=== PATIENT | female | born 1995 | race Caucasian/White ===

== ENCOUNTER 2017-09-02 13:20 | Inpatient (IN) | payer MEDICAID ==
[~2017-09-02] VITALS: Ht 160 cm; Wt 68.0 kg
[2017-09-02 13:23] VITALS: BP 139/102
--- NOTE | 2017-09-02 13:34 | NUR ---
Pt c/o left side numbness that started from mouth down to left knee since 1300 today. Pt has 5/10 left frontal numbing headache that does not radiate. AOx4. She has unequal framing manager strength and limited sensation on left side of body. Breathing is normal with equal chest rise and fall, no SOB. VSS, with mild fever.
--- NOTE | 2017-09-02 13:50 | NUR ---
Pt was taken to head CT
--- NOTE | 2017-09-02 14:19 | NUR ---
Pt's O2 100% on room air. No O2 needed
[2017-09-02 14:24] LABS: BASOPHILS # (AUTO) 0.5 K/uL (0.00-0.22); BASOPHILS % (AUTO) 4.1 % (0.0-2.0); EOSINOPHILS # (AUTO) 0.1 K/uL (0-0.4); HEMATOCRIT 39.9 % (36-48); HEMOGLOBIN 12.9 g/dL (12.0-16.0); LYMPHOCYTES # (AUTO) 2.5 K/uL (2.5-16.5); MEAN CORPUSCULAR HEMOGLOBIN 27 pg (27-31); MEAN CORPUSCULAR HGB CONC 32 g/dL (33-37); MEAN CORPUSCULAR VOLUME 85 fL (80-94); MONOCYTES # (AUTO) 0.7 K/uL (0.8-1.0); MONOCYTES % (AUTO) 5.8 % (1.7-9.3); NEUTROPHILS # (AUTO) 8.1 K/uL (1.8-7.7); NEUTROPHILS % (AUTO) 68.1 % (42.2-75.2); PLATELET COUNT (AUTO) 280 K/uL (140-450); RED BLOOD CELL COUNT(AUTO) 4.69 MIL/uL (4.20-5.40); RED CELL DISTRIBUTION WIDTH 11.7 % (11.6-13.7); WHITE BLOOD COUNT (AUTO) 11.9 K/uL (4.5-11.0)
[2017-09-02 14:46] LABS: ANION GAP 12.2 (8-16); APPEARANCE,URINE SL CLOUDY (CLEAR); BILIRUBIN,URINE NEGATIVE (NEGATIVE); BLOOD, URINE NEGATIVE (NEGATIVE); CARBON DIOXIDE 26.7 mmol/L (21-32); COLOR,URINE YELLOW (YELLOW); CREATININE 0.7 mg/dL (0.6-1.3); LEUKOCYTE ESTERASE ,URINE NEGATIVE (NEGATIVE); NITRITE, URINE NEGATIVE (NEGATIVE); PH,URINE 7.5 (5.0-9.0); POTASSIUM 3.9 mmol/L (3.5-5.1); TOTAL BILIRUBIN 0.6 mg/dL (0.0-1.0); UGLUCOSE NEGATIVE (NEGATIVE)
[2017-09-02 14:52] LABS: SALICYLATE < 2.8 mg/dL (2.8-20.0)
[2017-09-02 15:15] LABS: ACETAMINOPHEN < 0.5 ug/ml (10-30)
[2017-09-02 15:21] LABS: BARBITURATE, URINE NEG. ng/ml (NEG <=200); BENZODIAZEPINE, URINE NEG. ng/mL (NEG <=200); CANNABINOID, URINE NEG. ng/mL (NEG <=50); COCAINE, URINE NEG. ng/mL (NEG <=300); OPIATE, URINE NEG. ng/mL (NEG <=2000); PHENCYCLIDINE SCREEN,URINE NEG. ng/mL (NEG <=25)
[2017-09-02] MEDS ORDERED: MORPHINE SULFATE 2 MG/ML SYR IVP PRN (16:25)
[2017-09-02] MEDS ORDERED: HYDROcodone/APAP 7.5/325 MG 1 TAB PO PRN (16:25)
[2017-09-02] MEDS ORDERED: DOCUSATE SODIUM 100 MG GELCAP PO PRN (16:25)
[2017-09-02] MEDS ORDERED: ONDANSETRON 4 MG/2 ML VIAL IM/IVP PRN (16:25)
--- NOTE | 2017-09-02 17:29 | NUR ---
Patient will be admitted to care of Dr Damian. Admited to TELE. Will go to room 110B. Belongings list completed. Report to CHAD Smith.
[2017-09-02 17:30] VITALS: BP 116/63
--- NOTE | 2017-09-02 18:00 | NUR ---
Admitted from , with chief complaint of LT SIDED NUMBNESS (UPPER AND LOWER EXT), DX: NEW ONSET OF SEIZURE. NO SOB NOTED. NO C/O PAIN AT THIS TIME. IV TO LT AC PATENT AND INTACT. CHEST CLEAR. ABDOMEN SOFT, BOWEL SOUNDS PRESENT. NO EDEMA NOTED. PT IS A 21 y/o ,Female, Cooperative,oriented to call light, bed, phone,television, bathroom, smoking policy,visiting hours, procedures, ID bracelet on. Belongings list checked. INSTRUCTED PT TO CALL FOR ASSISTANCE, CALL LIGHT WITHIN REACH, PT VERBALIZED UNDERSTANDING.
[2017-09-02] MEDS: NACL 0.9% 1,000 ML IV SCH (18:07)
--- NOTE | 2017-09-02 19:04 | NUR ---
Admitted from , with chief complaint of LT SIDED NUMBNESS (UPPER AND LOWER EXT), DX: NEW ONSET OF SEIZURE. NO SOB NOTED. NO C/O PAIN AT THIS TIME. IV TO LT AC PATENT AND INTACT. CHEST CLEAR. ABDOMEN SOFT, BOWEL SOUNDS PRESENT. NO EDEMA NOTED. PT IS A 21 y/o ,Female, Cooperative,oriented to call light, bed, phone,television, bathroom, smoking policy,visiting hours, procedures, ID bracelet on. Belongings list checked. INSTRUCTED PT TO CALL FOR ASSISTANCE, CALL LIGHT WITHIN REACH, PT VERBALIZED UNDERSTANDING. Addendum: 09/02/17 at 1910 by Sarah Barrera RN DISREGARD ABOVE NOTES, DUPLICATE.
--- NOTE | 2017-09-02 19:15 | NUR ---
PT AWAKE. NO SOB NOTED, NO COMPLAINTS MADE AT THIS TIME. ENDORSED TO NEXT SHIFT NURSE FOR CONTINUITY OF CARE.
--- NOTE | 2017-09-02 19:17 | NUR ---
RECEIVED REPORT FROM DAY SHIFT NURSE. PT SITTING IN BED, EATING. FAMILY AT BEDSIDE. PT DENIES NUMBNESS TO LEFT SIDE OF HER BODY. NO DISTRESS NOTED. DISCUSSED PLAN OF CARE, PT VERBALIZED UNDERSTANDING. FALL AND SEIZURE PRECAUTION IN PLACE. CALL LIGHT WITHIN REACH. WILL CONTINUE TO MONITOR.
--- NOTE | 2017-09-02 19:18 | NUR ---
IV TO RIGHT AC#20G, NS AT 60 ML/HR INFUSING WELL.
[2017-09-02 19:53] VITALS: BP 130/83
--- NOTE | 2017-09-02 21:00 | NUR ---
PT IN BED WATCHING TV. NO C/O PAIN OR DISCOMFORT. NO SEIZURES NOTED. CALL LIGHT WITHIN REACH. WILL CONTINUE TO MONITOR.
[2017-09-02 22:12] LABS: CHOL/HDL RATIO 2.7 (1-4.5); FREE T4 (FREE THYROXINE) 1.01 ng/dL (0.76-1.46); MAGNESIUM 1.8 mg/dL (1.8-2.4); PHOSPHORUS 2.5 mg/dL (2.5-4.9); THYROID STIMULATING HORMONE 1.75 uIU/mL (0.34-3.74)
[2017-09-02] MEDS: ACETAMINOPHEN 325 MG TAB PO PRN (22:22)
--- NOTE | 2017-09-02 23:05 | NUR ---
PT WATCHING TV. NO DISTRESS NOTED. SAFETY AND SEIZURE PRECAUTION IN PLACE. CALL LIGHT WITHIN REACH.
[2017-09-03] VITALS: BP 114/61
--- NOTE | 2017-09-03 01:15 | NUR ---
PT SLEEPING BUT WAKES EASILY. NO S/S OF PAIN OR DISCOMFORT. NO SEIZURES NOTED. SAFETY AND SEIZURES PRECAUTION IN PLACE. CALL LIGHT WITHIN REACH.
--- NOTE | 2017-09-03 03:30 | NUR ---
PT SLEEPING, EASILY AROUSABLE. NO SEIZURES NOTED. SAFETY/SEIZURE PRECAUTION IN PLACE. CALL LIGHT WITHIN REACH.
[2017-09-03 04:00] VITALS: BP 105/66
--- NOTE | 2017-09-03 05:45 | NUR ---
PT IN BED, AWAKE. NO C/O PAIN OR DISCOMFORT. CALL LIGHT WITHIN REACH.
--- NOTE | 2017-09-03 07:02 | NUR ---
RECEIVED REPORT FROM DAY SHIFT NURSE. PT SITTING IN BED, FRIENDS AT BEDSIDE. NO C/O PAIN OR DISCOMFORT. NO SEIZURES NOTED. NO C/O NUMBNESS. IV TO RIGHT AC #20G, NS AT 20 ML/HR. DISCUSSED PLAN OF CARE, PT VERBALIZED UNDERSTANDING. SAFETY/SEIZURE PRECAUTION IN PLACE. CALL LIGHT WITHIN REACH. WILL CONTINUE TO MONITOR. Addendum: 09/03/17 at 1951 by Masha Escalera RN ERROR
--- NOTE | 2017-09-03 07:15 | NUR ---
ENDORSED PT TO DAY SHIFT NURSE. PT IN STABLE CONDITION.
[2017-09-03 07:19] LABS: BASOPHILS # (AUTO) 0.4 K/uL (0.00-0.22); EOSINOPHILS # (AUTO) 0.2 K/uL (0-0.4); EOSINOPHILS % (AUTO) 1.5 % (0.0-4.0); HEMATOCRIT 35.5 % (36-48); HEMOGLOBIN 12.1 g/dL (12.0-16.0); LYMPHOCYTES # (AUTO) 3.1 K/uL (2.5-16.5); LYMPHOCYTES % (AUTO) 29.7 % (20.5-51.1); MEAN CORPUSCULAR HEMOGLOBIN 29 pg (27-31); MEAN CORPUSCULAR HGB CONC 34 g/dL (33-37); MEAN CORPUSCULAR VOLUME 85 fL (80-94); MONOCYTES # (AUTO) 0.7 K/uL (0.8-1.0); MONOCYTES % (AUTO) 6.7 % (1.7-9.3); NEUTROPHILS # (AUTO) 5.9 K/uL (1.8-7.7); NEUTROPHILS % (AUTO) 58.1 % (42.2-75.2); PLATELET COUNT (AUTO) 235 K/uL (140-450); RED BLOOD CELL COUNT(AUTO) 4.18 MIL/uL (4.20-5.40); RED CELL DISTRIBUTION WIDTH 11.9 % (11.6-13.7); WHITE BLOOD COUNT (AUTO) 10.3 K/uL (4.5-11.0)
--- NOTE | 2017-09-03 07:20 | NUR ---
RECEIVED PT IN BED. AWAKE. ALERT ORIENTEDX4. NO SOB NOTED. DENIES ANY PAIN OR DISCOMFORT AT THIS TIME. PT AMBULATORY. SAFETY PRECAUTION IN PLACE. CALL LIGHT WITHIN REACH.
[2017-09-03 07:51] VITALS: BP 124/78
[2017-09-03 09:16] LABS: ANION GAP 11.5 (8-16); CARBON DIOXIDE 27.4 mmol/L (21-32); CREATININE 0.6 mg/dL (0.6-1.3); POTASSIUM 3.9 mmol/L (3.5-5.1)
[2017-09-03 09:22] LABS: MAGNESIUM 1.8 mg/dL (1.8-2.4); PHOSPHORUS 4.1 mg/dL (2.5-4.9)
[2017-09-03 09:31] LABS: PROTHROMBIN TIME 10.4 secs (10.8-13.4)
--- NOTE | 2017-09-03 10:02 | NUR ---
PATIENT HAS BEEN SCREENED AND CATEGORIZED LOW NUTRITION RISK. PATIENT WILL BE SEEN WITHIN 7 DAYS OF ADMISSION. 09/09/17 FINN GOMES MBA, RD
[2017-09-03] MEDS: NACL 0.9% 1,000 ML IV SCH (10:15)
--- NOTE | 2017-09-03 10:41 | NUR ---
PT AWAKE. DR. NEWMAN AND THE RESIDENTS CAME TO SEE PT. AWAITING FOR NEURO CONSULT.
[2017-09-03 11:49] VITALS: BP 114/68
[2017-09-03] MEDS: LORazepam 2 MG/ML VIAL IM/IVP PRN (12:10)
--- NOTE | 2017-09-03 12:16 | NUR ---
PT VERBALIZED THAT WHEN SHE WAS TRYING TO EAT HER JAW STARTED TO SHAKE A LITTLE BIT, AND SHE IS SCARED THAT IT MIGHT LEAD TO A SEIZURE ACTIVITY SINCE THIS HAPPENED TO HER YESTERDAY RIGHT BEFORE THE SEIZURE. ASSESSED PT. PT ABLE TO MAKE HER NEEDS KNOWN. OBEYS COMMANDS, FAMILY AT BEDSIDE. MEDICATED PRN ATIVAN FOR AGITATION/SEIZURE. WILL CLOSELY MONITOR PT. SAFETY PRECAUTION IN PLACE.
--- NOTE | 2017-09-03 12:34 | NUR ---
CHECKED ON PT. PT DENIES ANY PAIN OR DISCOMFORT AT THIS TIME. DENIES FEELING NUMBNESS ON EITHER SIDE OF HER BODY. DENIES ANY SHAKING OR NUMBNESS ON HER JAW OR MOUTH AT THIS TIME.
[2017-09-03 15:43] VITALS: BP 114/70
--- NOTE | 2017-09-03 18:34 | NUR ---
PT KEPT CLEAN, DRY AND COMFORTABLE, NEEDS ATTENDED. NO SEIZURE ACTIVITY NOTED. NO SOB NOTED, DENIES ANY PAIN OR DISCOMFORT AT THIS TIME. WILL ENDORSE TO NEXT SHIFT. PT ON STABLE CONDITION. FOR CONTINUITY OF CARE.
--- NOTE | 2017-09-03 19:02 | NUR ---
RECEIVED REPORT FROM DAY SHIFT NURSE. PT SITTING IN BED, FRIENDS AT BEDSIDE. NO C/O PAIN OR DISCOMFORT. NO SEIZURES NOTED. NO C/O NUMBNESS. IV TO RIGHT AC #20G, NS AT 20 ML/HR. DISCUSSED PLAN OF CARE, PT VERBALIZED UNDERSTANDING. SAFETY/SEIZURE PRECAUTION IN PLACE. CALL LIGHT WITHIN REACH. WILL CONTINUE TO MONITOR.
[2017-09-03 20:00] VITALS: BP 118/67
--- NOTE | 2017-09-03 20:15 | NUR ---
EEG ONGOING. PT TOLERATING PROCEDURE WELL. NO DISTRESS NOTED.
[2017-09-03] MEDS: ACETAMINOPHEN 325 MG TAB PO PRN (22:16)
--- NOTE | 2017-09-03 22:17 | NUR ---
PT C/O HEADACHE 3/10 ON PAIN SCALE. TYLENOL 650 MG GIVEN. WILL CONTINUE TO MONITOR.
[2017-09-04] VITALS: BP 101/68
--- NOTE | 2017-09-04 00:21 | NUR ---
PT SLEEPING, EASILY AROUSABLE. NO S/S OF PAIN OR DISCOMFORT. NO S/S OF SEIZURE NOTED. CALL LIGHT WITHIN REACH.
--- NOTE | 2017-09-04 03:00 | NUR ---
PT SLEEPING BUT WAKES EASILY. NO S/S OF SEIZURES. NO S/S OF PAIN OR DISCOMFORT. SAFETY PRECAUTION IN PLACE. CALL LIGHT WITHIN REACH.
[2017-09-04 04:00] VITALS: BP 118/67
--- NOTE | 2017-09-04 07:00 | NUR ---
ENDORSED PT TO DAY SHIFT NURSE. PT IN STABLE CONDITION.
--- NOTE | 2017-09-04 07:01 | NUR ---
RECEIVED PATIENT REPORT AT BEDSIDE FROM NIGHTSHIFT NURSE. PATIENT IS ASLEEP BUT AROUSABLE. PATIENT IS A&OX4. PATIENT DOES NOT COMPLAIN OF ANY NUMBNESS AT THIS TIME. PATIENT'S BED HAS SEIZURE PADS IN PLACE. NO NOTED SEIZURES DURING THIS TIME. PATIENT IS IN STABLE CONDITION. WILL CONTINUE TO MONITOR PATIENT.
[2017-09-04 07:14] LABS: ANION GAP 13.7 (8-16); CREATININE 0.6 mg/dL (0.6-1.3); POTASSIUM 3.7 mmol/L (3.5-5.1)
[2017-09-04 07:16] LABS: MAGNESIUM 1.9 mg/dL (1.8-2.4); PHOSPHORUS 3.6 mg/dL (2.5-4.9)
[2017-09-04 07:23] LABS: BASOPHILS # (AUTO) 0.3 K/uL (0.00-0.22); BASOPHILS % (AUTO) 3.3 % (0.0-2.0); EOSINOPHILS # (AUTO) 0.2 K/uL (0-0.4); EOSINOPHILS % (AUTO) 1.9 % (0.0-4.0); HEMATOCRIT 37.9 % (36-48); HEMOGLOBIN 12.7 g/dL (12.0-16.0); LYMPHOCYTES # (AUTO) 2.6 K/uL (2.5-16.5); LYMPHOCYTES % (AUTO) 29.6 % (20.5-51.1); MEAN CORPUSCULAR HEMOGLOBIN 28 pg (27-31); MEAN CORPUSCULAR HGB CONC 33 g/dL (33-37); MEAN CORPUSCULAR VOLUME 85 fL (80-94); MONOCYTES # (AUTO) 0.5 K/uL (0.8-1.0); MONOCYTES % (AUTO) 5.5 % (1.7-9.3); NEUTROPHILS # (AUTO) 5.1 K/uL (1.8-7.7); NEUTROPHILS % (AUTO) 59.7 % (42.2-75.2); PLATELET COUNT (AUTO) 242 K/uL (140-450); RED BLOOD CELL COUNT(AUTO) 4.48 MIL/uL (4.20-5.40); RED CELL DISTRIBUTION WIDTH 12.3 % (11.6-13.7); WHITE BLOOD COUNT (AUTO) 8.7 K/uL (4.5-11.0)
[2017-09-04 08:00] VITALS: BP 117/61
[2017-09-04] MEDS: NACL 0.9% 1,000 ML IV SCH (09:05)
[2017-09-04] MEDS: LORazepam 2 MG/ML VIAL IM/IVP PRN (09:11)
--- NOTE | 2017-09-04 09:11 | NUR ---
PATIENT COMPLAINS OF MOUTH NUMBNESS AND SAID HER ARMS WERE SHAKING. SHE SAID THAT THIS HAPPENED RIGHT BEFORE SHE HAS A SEIZURE LAST TIME. ADMINISTERED 0.5 ML OF ATIVAN IV TO PATIENT. WILL CONTINUE TO MONITOR PATIENT.
[2017-09-04] MEDS ORDERED: MORPHINE SULFATE 2 MG/ML SYR IVP PRN (11:50)
[2017-09-04 12:00] VITALS: BP 122/69
[2017-09-04] MEDS: levETIRAcetam 1,000 MG in NACL 0.9% 100 ML IV SCH ×2 (12:29→21:11)
--- NOTE | 2017-09-04 14:00 | NUR ---
PATIENT ABLE TO AMBULATE TO THE SHOWER AND BATHE HERSELF. MOTHER AT PATIENT'S SIDE TO MAKE SURE SHE IS SAFE. PATIENT ABLE TO AMBULATE SAFELY BACK TO HER ROOM. IV STILL INTACT. PATIENT TOLERATED WELL.
[2017-09-04 16:00] VITALS: BP 126/72
--- NOTE | 2017-09-04 19:12 | NUR ---
GAVE REPORT TO NIGHTSHIFT NURSE AT BEDSIDE. PATIENT IS IN STABLE CONDITION.
--- NOTE | 2017-09-04 19:13 | NUR ---
RECEIVED REPORT FROM DAY NURSE. PT IN STABLE CONDITION. NO S/S OF DISTRESS NOTED. PT SEEN AMBULATING AROUND THE HALLWAY WITH FAMILY AT HER SIDE, PT TOLERATED WELL. PT IS AAOX4, ON ROOM AIR. IV TO R AC 20G, PATENT AND INTACT, INFUSING WELL. SKIN IS INTACT. INITIAL ASSESSMENT COMPLETED. PLAN OF CARE DISCUSSED WITH PT AT THE BEDSIDE, FAMILY PRESENT, VERBALIZED UNDERSTANDING. ALL SAFETY PRECAUTIONS MET, CALL LIGHT WITHIN REACH, BOARD UPDATED, WILL CONTINUE TO MONITOR
[2017-09-04 20:00] VITALS: BP 113/66
[2017-09-05] VITALS: BP_SYST 101; BP_SYST 140; BP_DIAS 49; BP_DIAS 78
--- NOTE | 2017-09-05 05:00 | NUR ---
CALLED CARDIO TO ASK WHAT HAPPENED WITH EEG THAT WAS ORDERED ON THE 09/04/17 AT 0800 BECAUSE NO RESULTS ARE SHOWING AND ORDER SAYS IT IS STILL ACTIVE. THEY STATED THAT IT HAS BEEN DONE BUT IT HAS NOT BEEN READ YET AND THEY WILL, "LEAVE A NOTE FOR THE BOSS WHEN THEY COME IN." "NO ONE IS HERE NOW."
[2017-09-05 06:16] LABS: T4 (THYROXINE) 8.1 ug/dL (4.5-12.0)
[2017-09-05 07:03] LABS: BASOPHILS # (AUTO) 0.3 K/uL (0.00-0.22); BASOPHILS % (AUTO) 2.6 % (0.0-2.0); EOSINOPHILS # (AUTO) 0.1 K/uL (0-0.4); EOSINOPHILS % (AUTO) 1.1 % (0.0-4.0); HEMATOCRIT 36.2 % (36-48); HEMOGLOBIN 12.1 g/dL (12.0-16.0); LYMPHOCYTES # (AUTO) 2.6 K/uL (2.5-16.5); LYMPHOCYTES % (AUTO) 24.5 % (20.5-51.1); MEAN CORPUSCULAR HEMOGLOBIN 28 pg (27-31); MEAN CORPUSCULAR HGB CONC 33 g/dL (33-37); MEAN CORPUSCULAR VOLUME 84 fL (80-94); MONOCYTES # (AUTO) 0.8 K/uL (0.8-1.0); MONOCYTES % (AUTO) 7.2 % (1.7-9.3); NEUTROPHILS # (AUTO) 6.7 K/uL (1.8-7.7); NEUTROPHILS % (AUTO) 64.6 % (42.2-75.2); PLATELET COUNT (AUTO) 247 K/uL (140-450); RED CELL DISTRIBUTION WIDTH 11.9 % (11.6-13.7); WHITE BLOOD COUNT (AUTO) 10.5 K/uL (4.5-11.0)
--- NOTE | 2017-09-05 07:20 | NUR ---
GAVE REPORT TO DAY NURSE WENDY RN FOR CONTINUITY OF CARE, PT IN STABLE CONDITION. NO S/S OF DISTRESS NOTED. IV PATENT AND INTACT
--- NOTE | 2017-09-05 07:25 | NUR ---
RECEIVED REPORT FROM SHOT CORE DRILL OPERATOR NURSE. PT WAS ASLEEP EASILY AWAKEN. AOX4. AMBULATORY. NO SIGNS OF RESPIRATORY DISTRESS. IV ON THE RIGHT AC, PATENT, INTACT, FLUSHING WELL. SKIN IS INTACT. DISCUSSED PLAN OF CARE WITH PT. PT VERBALIZED UNDERSTANDING. SAFETY/FALL/SEIZURE PRECAUTIONS IN PLACE. CALL LIGHT WITHIN REACH. WILL CONTINUE TO MONITOR.
[2017-09-05 07:56] LABS: MAGNESIUM 1.8 mg/dL (1.8-2.4)
[2017-09-05 08:00] VITALS: BP 109/67
[2017-09-05 08:12] LABS: ANION GAP 12.9 (8-16); CARBON DIOXIDE 27.4 mmol/L (21-32); CREATININE 0.7 mg/dL (0.6-1.3); POTASSIUM 4.3 mmol/L (3.5-5.1)
[2017-09-05] MEDS: levETIRAcetam 1,000 MG in NACL 0.9% 100 ML IV SCH (09:45)
[2017-09-05] MEDS: NACL 0.9% 1,000 ML IV SCH (09:45)
--- NOTE | 2017-09-05 09:45 | NUR ---
PT RESTING IN BED. VISITOR AT BEDSIDE. NO RESPIRATORY DISTRESS NOTED. KEPPRA WELL TOLERATED. CALL LIGHT WITHIN REACH. BED AT LOWEST SETTING.
[2017-09-05] MEDS ORDERED: LEVE1000 PO (10:55)
--- NOTE | 2017-09-05 11:45 | NUR ---
PT EATING LUNCH WITH VISITOR. MEDICATIONS ADMINISTERED AND TOLERATED WELL. CALL LIGHT WITHIN REACH. BED IN LOWEST POSITION.
--- NOTE | 2017-09-05 13:35 | NUR ---
PT DISCHARGED. IV REMOVED. IV INTACT. ID BAND REMOVED. PT STABLE UPON DISCHARGE.
== END 2017-09-05 13:40 | disposition home or self-care (01) | DRG 53 ==
LOC: MED 13:20 → MTU 16:33
PROVIDERS: ADMIT Family Medicine; ATTEND Family Medicine
DX: G40.909 Epilepsy, unspecified, not intractable, without status epilepticus (principal); G93.41 Metabolic encephalopathy; E87.8 Other disorders of electrolyte and fluid balance, not elsewhere classified; D72.829 Elevated white blood cell count, unspecified
CPT/HCPCS: 36415; 70450; 71045; 80048; 80053; 80173; 80305; 81003; 81025; 82150; 82550; 83036; 83690; 83735; 83880; 84100; 84436; 84439; 84443; 84479; 85025; 85610; 85730; 87081; 93005; 95816; 99285; G0480; G0482; J1953; J2060; J7030; Q0092

== ENCOUNTER 2020-11-14 13:30 | Inpatient (IN) | payer MEDICAID, SELFPAY ==
[~2020-11-14] VITALS: Ht 162.6 cm; Wt 70.8 kg
[2020-11-14] MEDS: NACL 0.9% 1,000 ML IV SCH ×2 (05:30→23:35)
[~2020-11-14 13:30] MED LIST: LEVE1000 PO
[2020-11-14] MEDS: ONDANSETRON 4 MG/2 ML VIAL IVP PRN (14:42)
[2020-11-14] MEDS: MORPHINE SULFATE 10 MG/ML VIAL IVP PRN ×2 (14:42→20:10)
[2020-11-14 14:56] VITALS: BP 130/70
[2020-11-14 15:28] LABS: APPEARANCE,URINE CLEAR (CLEAR); BILIRUBIN,URINE NEGATIVE (NEGATIVE); BLOOD, URINE 2+ (NEGATIVE); COLOR,URINE YELLOW (YELLOW); LEUKOCYTE ESTERASE ,URINE 2+ (NEGATIVE); NITRITE, URINE NEGATIVE (NEGATIVE); UGLUCOSE NEGATIVE (NEGATIVE)
[2020-11-14] MEDS ORDERED: cefTRIAXone 1,000 MG VIAL ONE (15:30)
[2020-11-14 15:46] LABS: RBC,URINE 11-20 (MOD) /HPF (0-5); WBC,URINE 20-60 /HPF (0-5)
[2020-11-14 16:35] LABS: ALBUMIN 2.5 g/dL (3.4-5.0); ANION GAP 9.9 (8-16); CARBON DIOXIDE 24.7 mmol/L (21-32); CREATININE 0.7 mg/dL (0.6-1.3); POTASSIUM 3.6 mmol/L (3.5-5.1); TOTAL BILIRUBIN 0.3 mg/dL (0.0-1.0)
[2020-11-14 16:38] LABS: BASOPHILS % (AUTO) 0.2 % (0.0-2.0); EOSINOPHILS % (AUTO) 0.1 % (0.0-4.0); HEMATOCRIT 31.3 % (36-48); HEMOGLOBIN 10.6 g/dL (12.0-16.0); LYMPHOCYTES # (AUTO) 1.4 K/uL (2.5-16.5); LYMPHOCYTES % (AUTO) 8.1 % (20.5-51.1); MEAN CORPUSCULAR HEMOGLOBIN 29 pg (27-31); MEAN CORPUSCULAR HGB CONC 34 g/dL (33-37); MONOCYTES # (AUTO) 0.8 K/uL (0.8-1.0); NEUTROPHILS # (AUTO) 14.5 K/uL (1.8-7.7); NEUTROPHILS % (AUTO) 86.6 % (42.2-75.2); PLATELET COUNT (AUTO) 235 K/uL (140-450); WHITE BLOOD COUNT (AUTO) 16.7 K/uL (4.8-10.8)
[2020-11-15] MEDS ORDERED: fentaNYL citrate 0.05 MG/ML VIAL ONE (09:15)
[2020-11-15] MEDS ORDERED: DEXAMETHASONE 4 MG/ML VIAL ONE (09:15)
[2020-11-15] MEDS ORDERED: ONDANSETRON 4 MG/2 ML VIAL ONE (09:15)
[2020-11-15] MEDS ORDERED: LIDOCAINE 2% 100 MG/5 ML SYR IVP ONE (09:15)
[2020-11-15] MEDS ORDERED: PROPOFOL 200 MG/20 ML VIAL IV ONE (09:15)
[2020-11-15] MEDS ORDERED: SUCCINYLCHOLINE CHLORIDE 200 MG/10 ML VIAL IVP ONE (09:15)
[2020-11-15] MEDS ORDERED: LACTATED RINGERS 1,000 ML IV SCH (10:10)
[2020-11-15] MEDS ORDERED: diphenhydrAMINE 50 MG/ML VIAL IVP PRN (10:10)
[2020-11-15] MEDS ORDERED: ONDANSETRON 4 MG/2 ML VIAL IVP PRN (10:10)
[2020-11-15] MEDS ORDERED: HYDROmorphone 1 MG/ML AMP IVP PRN (10:10)
[2020-11-15] MEDS ORDERED: MEPERIDINE 25 MG/ML SYR IVP PRN (10:10)
[2020-11-15] MEDS ORDERED: cefTRIAXone 1,000 MG VIAL ONE (16:58)
[2020-11-15 22:52] VITALS: BP 111/68
[2020-11-15] MEDS: MORPHINE SULFATE 10 MG/ML VIAL IVP PRN (22:52)
[2020-11-15] MEDS: ONDANSETRON 4 MG/2 ML VIAL IVP PRN (22:53)
[2020-11-16] MEDS ORDERED: CEPH500C16 PO (07:49)
[2020-11-16] MEDS ORDERED: ACET-2619 PO (07:50)
--- NOTE | 2020-11-16 08:42 | NUR ---
PATIENT HAS BEEN SCREENED AND CATEGORIZED LOW NUTRITION RISK. PATIENT WILL BE SEEN WITHIN 7 DAYS OF ADMISSION. 11/22/[address]
== END 2020-11-16 09:05 | disposition home or self-care (01) | DRG 566 ==
LOC: MLD 13:30 → MFCC 17:50 → OBSVTOIN 11-15 18:00
PROVIDERS: ADMIT Obstetrics & Gynecology; ATTEND Obstetrics & Gynecology
PROC: BT1F1ZZ Fluoroscopy of Left Kidney, Ureter and Bladder using Low Osmolar Contrast (ICD-10-PCS; 2020-11-15)
PROC: 0T778DZ Dilation of Left Ureter with Intraluminal Device, Via Natural or Artificial Opening Endoscopic (ICD-10-PCS; principal; 2020-11-15 10:20)
DX: O23.02 Infections of kidney in pregnancy, second trimester (principal); Z20.822 Contact with and (suspected) exposure to COVID-19; N13.6 Pyonephrosis; Z3A.27 27 weeks gestation of pregnancy
CPT/HCPCS: G0378 ×28; 36415; 76700; 76805; 80053; 81001; 85025; 87086; C1758; C2617; J0330; J0696; J1100; J2001; J2270; J2405; J2704; J3010; J7060; J7120

== ENCOUNTER 2021-03-09 11:02 | Emergency (ER) | payer MEDICAID, SELFPAY ==
[~2021-03-09] VITALS: Ht 160 cm; Wt 67.6 kg
[~2021-03-09 11:02] MED LIST changes: +ACET-2619 PO; +CEPH500C16 PO; -LEVE1000 PO
[2021-03-09 11:12] VITALS: BP 138/94
--- NOTE | 2021-03-09 11:21 | NUR ---
KAREN. HANDED ON URINE CUP.
--- NOTE | 2021-03-09 12:54 | NUR ---
PT AMBULATED TO BED 9
--- NOTE | 2021-03-09 12:56 | NUR ---
25 YO FEMALE BIB SELF C/O LEFT FLANK PAIN X 1 WEEK. HEMATURIA, BURNING DURING URINATION, URGENCY, URINATING SMALL AMT OF URINE. PT STATES, SHE WAS AT [facility] ON MONDAY AND SHE WAS TOLD SHE HAD KIDNEY STONES, GIVEN PAIN MEDICATION. PT STATES SHE TOOK TYLENOL 500MG 2TABS THIS AM, PROVIDED SOME RELIEF. DENIES NAUSEA, VOMITING, FEVER, CHILLS, SOB. PT PLACED IN GOWN, BED IN LOWEST POSITION. LMP JUN 2020, GAVE 01/24/21 [facility]: ROSA KIDNEYS STONES, STENT AT KIDNEY
[2021-03-09 14:17] LABS: BILIRUBIN,URINE NEGATIVE (NEGATIVE); BLOOD, URINE 1+ (NEGATIVE); LEUKOCYTE ESTERASE ,URINE 1+ (NEGATIVE); NITRITE, URINE NEGATIVE (NEGATIVE); UGLUCOSE NEGATIVE (NEGATIVE)
[2021-03-09 14:21] LABS: APPEARANCE,URINE HAZY (CLEAR); COLOR,URINE STRAW (YELLOW)
[2021-03-09 14:25] VITALS: BP 138/94
[2021-03-09] MEDS ORDERED: CEPH-588 PO (14:26)
== END 2021-03-09 14:25 | disposition home or self-care (01) ==
LOC: MED 11:02
DX: N39.0 Urinary tract infection, site not specified (principal); N20.0 Calculus of kidney; Z79.899 Other long term (current) drug therapy
CPT/HCPCS: 81001; 81025; 87086; 99284